=== PATIENT | female | born 1970 | race African-American/Black ===

== ENCOUNTER 2020-11-30 19:35 | Emergency (ER) | payer OTHER ==
[~2020-11-30] VITALS: Ht 160 cm; Wt 82.7 kg
--- NOTE | 2020-11-30 20:09 | PHYS DOC ---
Past History Past Medical History: Arthritis General Adult EDM: Chief Complaint: SYNCOPE HPI: HPI: "... I just had a spinal stimulator put in at ... today for my chronic back pain... I got home and was feeling dizzy.. and then I started vomiting.. .. and next thing I know .. I guess I passed out.. and did a face plant into floor.. messed up the side face and head.. Dr. Iglesias did the implant at ... " Patient is a 49 year old female dependent who presents with above hx and syncope complaints after returning home today from procedure to place a spinal stimulator. Patient has a history of chronic back pain. No history immunosuppression. Patient states she became nauseous at home and started vomiting and had a syncopal event and fell from her bed to the floor. Upon awaking after short loss of consciousness noted she had contusions to her head and left side of face. Patient denies any recent travel. No specific ill contacts. Generally healthy with exception of chronic back pain. Pt. follows with Dr. Aleksandr collazo. Dr. Iglesias neurosurgery at Review of Systems: Review of Systems: Constitutional: Denies fever or chills Eyes: Denies change in visual acuity HENT: Complains of facial pain and head injury Respiratory: Denies cough or shortness of breath Cardiovascular: Denies chest pain or edema GI: Denies abdominal pain, nausea, vomiting, bloody stools or diarrhea : Denies dysuria Musculoskeletal: Complains of back pain Integument: Denies rash Neurologic: Denies headache, focal weakness or sensory changes Endocrine: Denies polyuria or polydipsia Lymphatic: Denies swollen glands Psychiatric: Denies depression or anxiety Family History: Family History: Noncontributory to presentation Current Medications: Current Meds: See nursing for home meds Allergies: Allergies: Allergies per nursing Physical Exam: PE: Constitutional: Well developed, well nourished, moderate acute distress, non- toxic appearance. [] HENT: Normocephalic, head and facial contusion, bilateral external ears normal, oropharynx moist, no oral exudates, nose normal. Good bite. Eyes: PERRLA, EOMI, conjunctiva normal, no discharge. [] Neck: Normal range of motion, no tenderness, supple, no stridor. Mild upper neck tenderness Cardiovascular:Heart rate regular rhythm, no murmur [] Lungs & Thorax: Bilateral breath sounds clear to auscultation [] Abdomen: Bowel sounds normal, soft, no tenderness, no masses, no pulsatile masses. [] Skin: Warm, dry, no erythema, no rash. [] Back: Mild tenderness, no CVA tenderness. [] Dressing over placement of spinal stimulator-stable no leakage of spinal fluid. Site of battery pack also stable Extremities: No tenderness, no cyanosis, no clubbing, ROM intact, no edema. [] Neurologic: Alert and oriented X 3, normal motor function, normal sensory function, no focal deficits noted. DTRs +2 patella and brachial. Ambulatory without problems. No drift. Senior Network Architect equal. Right-hand dominant. Psychologic: Affect anxious, judgement normal, mood normal. [] EKG: EKG: My interpretation EKG shows sinus rhythm 63 bpm. Some bimodal P waves and left leads. But no findings of acute STEMI or contralateral changes. [] Radiology/Procedures: Radiology/Procedures: [address] [address] IMAGING REPORT Signed PATIENT: DOM PASTORACCOUNT: [id number] : 1970 LOCATION: ER AGE: 49 SEX: F EXAM STATUS: REG ER ORD. PHYSICIAN: KIRIT LAINEZ MD REASON: syncope , fall, contusons PROCEDURE: PORTABLE CHEST 1V Study: XR CHEST 1V Indication: Syncope. Fall. Comparison: None. Findings: The cardiomediastinal silhouette and anamika are within normal limits given AP technique. No confluent airspace infiltrate, layering effusion or pneumothorax. The partially assessed osseous structures are grossly intact. Spinal cord stimulator device. Impression: No acute radiographic abnormality of the chest. Electronically signed by: KEON LU MD (11/30/2020 9:53 PM) [facility] DICTATED AND SIGNED BY: KEON LU MD DATE: 11/30/202151 CC: KIRIT LAINEZ MD; JUSTINE CAPUTO MD ~MTH0 0 [][address] [address] IMAGING REPORT Signed PATIENT: DOM PASTORACCOUNT: [id number] : 1970 LOCATION: ER AGE: 49 SEX: F EXAM STATUS: REG ER ORD. PHYSICIAN: KIRIT LAINEZ MD REASON: syncope, fall facial contusion PROCEDURE: CT MAXILLOFACIAL WO CONTRAST Exam: CT head, maxillofacial and cervical spine INDICATION: Syncope TECHNIQUE: Sequential axial images through the head, face and cervical spine were obtained without the administration of IV contrast. Exposure: One or more of the following in the visualized dose reduction techniques were utilized for this examination: 1. Automated exposure control 2. Adjustment of the MA and/or KV according to patient size 3. Use of iterative of reconstructive technique Comparisons: None FINDINGS: Head: No focal parenchymal lesion or hemorrhage is identified. There is no midline shift or sulcal effacement. No acute vascular territory infarction is identified. Dias-white distinction is preserved. The ventricular system is within normal limits without compression hydrocephalus. The basal cisterns are well maintained. Face: The visualized portions of the paranasal sinuses and mastoid air cells are well- pneumatized. No acute fractures. Cervical spine: Straightening of the cervical spine which may positional. Vertebral body heights are well-maintained. Fracture to the cervical spine is not identified. No significant spondylotic change in the cervical spine. Visualized paraspinal soft tissues are unremarkable. IMPRESSION: 1. No acute intracranial abnormality. 2. No acute traumatic injury identified at the face. 3. Negative CT C-spine for acute traumatic injury. Electronically signed by: Miguel Caceres MD (11/30/2020 9:43 PM) [facility] DICTATED AND SIGNED BY: MIGUEL CACERES MD DATE: 11/30/202136 CC: KIRIT LAINEZ MD; JUSTINE CAPUTO MD ~MTH0 0 Heart Score: C/O Chest Pain: N/A HEART Score for Chest Pain: HEART Score for Chest Pain Response (Comments) Value History Slighlty/Non-Suspicious 0 ECG Normal 0 Age < 45 0 Risk Factors No Risk Factors 0 Troponin < Normal Limit 0 Total 0 Risk Factors: Risk Factors: DM, Current or recent (<one month) smoker, HTN, HLP, family history of CAD, obesity. Risk Scores: Score 0 - 3: 2.5% MACE over next 6 weeks - Discharge Home Score 4 - 6: 20.3% MACE over next 6 weeks - Admit for Clinical Observation Score 7 - 10: 72.7% MACE over next 6 weeks - Early Invasive Strategies Course & Med Decision Making: Course & Med Decision Making Pertinent Labs and Imaging studies reviewed. (See chart for details). Patient has sleep with head elevated tonight. Ice packs as needed. Push fluids. Must return for repeat evaluation if vomits more than twice. Follow-up with primary care. Follow-up with surgery clinic. Have primary review ED work-up for syncope. Take only Tylenol for pain. Return if any concerns. Impression: 1. Syncope- felt secondary post spinal stimulator placement and meds 2. Concussion [] Dragon Disclaimer: Dragon Disclaimer: This electronic medical record was generated, in whole or in part, using a voice recognition dictation system. Departure Departure: Referrals: PCP,UNKNOWN (PCP) KIRIT LAINEZ MD November 30, 2020 20:09
[2020-11-30] MEDS ORDERED: IV RINGERS SOLUTION,LACTATED 1,000 ML IV SCH (20:30)
[2020-11-30] MEDS ORDERED: ONDANSETRON PF 4 MG/2 ML VIAL. IVP ONE ×2 (20:30→20:45)
[2020-11-30] MEDS ORDERED: ONDANSETRON PF 4 MG/2 ML VIAL. ONE (20:44)
[2020-11-30 21:25] LABS: BASO % 0 % (0-3); EOS % 1 % (0-3); HEMATOCRIT 37.5 % (36.0-47.0); LYMPH # 1.3 x10^3/uL (1.0-4.8); LYMPH % 17 % (24-48); MEAN CORPUSCULAR HEMOGLOBIN 28 pg (25-35); MEAN CORPUSCULAR HGB CONC 32 g/dL (31-37); MEAN CORPUSCULAR VOLUME 87 fL (79-100); MONO # 0.5 x10^3/uL (0.0-1.1); MONO % 7 % (0-9); NEUT # 6.1 x10^3uL (1.8-7.7); NEUT % 76 % (31-73); PLATELET COUNT 258 x10^3/uL (140-400); RED BLOOD COUNT 4.29 x10^6/uL (3.50-5.40); RED CELL DISTRIBUTION WIDTH 13.6 % (11.5-14.5)
[2020-11-30 21:36] LABS: CALCIUM 8.8 mg/dL (8.5-10.1); CREATININE 0.9 mg/dL (0.6-1.0); GFR 80.5
--- NOTE | 2020-11-30 21:41 | EKG ---
[address] [address] Test Date: 2020-11-30 Test Time: 20:07:41 Pat Name: DOM PASTOR Department: Room: Gender: F Retail Manager In Training: : 1970 Requested By: KIRIT LAINEZ Order Number: [id number] Reading MD: Measurements Intervals [place] Rate: 63 P: 47 CA: 180 QRS: 9 QRSD: 98 T: 56 QT: 414 QTc: 427 Interpretive Statements SINUS RHYTHM LEFT ATRIAL ABNORMALITY ABNORMAL ECG RI6.02 No previous ECG available for comparison
--- NOTE | 2020-11-30 21:45 | RAD ---
Exam: CT head, maxillofacial and cervical spine INDICATION: Syncope TECHNIQUE: Sequential axial images through the head, face and cervical spine were obtained without th e administration of IV contrast. Exposure: One or more of the following in the visualized dose reduction techniques were utilized for this examination: 1. Automated exposure control 2. Adjustment of the MA and/or KV according to patient size 3. Use of iterative of reconstructive technique Comparisons: None FINDINGS: Head: No focal parenchymal lesion or hemorrhage is identified. There is no midline shift or sulcal effaceme nt. No acute vascular territory infarction is identified. Dias-white distinction is preserved. The ventricular system is within normal limits without compression hydrocephalus. The basal cisterns are well maintained. Face: The visualized portions of the paranasal sinuses and mastoid air cells are well-pneumatized. No acute fractures. Cervical spine: Straightening of the cervical spine which may positional. Vertebral body heights are well-maintained. Fracture to the cervical spine is not identified. No significant spondylotic change in the cervical spine. Visualized paraspinal soft tissues are unremarkable. IMPRESSION: 1. No acute intracranial abnormality. 2. No acute traumatic injury identified at the face. 3. Negative CT C-spine for acute traumatic injury. Electronically signed by: Miguel Fernando MD (11/30/2020 9:43 PM) [facility]
[2020-11-30 21:49] LABS: ALBUMIN 3.2 g/dL (3.4-5.0); DIRECT BILIRUBIN 0.1 mg/dL (0.0-0.2); TOTAL BILIRUBIN 0.5 mg/dL (0.2-1.0); TOTAL PROTEIN 7.1 g/dL (6.4-8.2)
--- NOTE | 2020-11-30 21:55 | RAD ---
Study: XR CHEST 1V Indication: Syncope. Fall. Comparison: None. Findings: The cardiomediastinal silhouette and anamika are within normal limits given AP technique. No confluent a irspace infiltrate, layering effusion or pneumothorax. The partially assessed osseous structures are grossly intact. Spinal cord stimulator device. Impression: No acute radiographic abnormality of the chest. Electronically signed by: KEON LU MD (11/30/2020 9:53 PM) [facility]
[2020-11-30 22:05] LABS: BARBITURATES NEG (NEG); BENZODIAZEPINES POS (NEG); BILIRUBIN,URINE NEG (NEG); CANNABINOIDS NEG (NEG); CLARITY,URINE CLEAR; COCAINE NEG (NEG); COLOR,URINE YELLOW; GLUCOSE,URINE NEG (NEG); METHADONE NEG (NEG); NITRITE,URINE NEG (NEG); OPIATES NEG (NEG); PHENCYCLIDINE NEG (NEG)
[2020-11-30 22:09] LABS: BACTERIA,URINE 0 /HPF (0-FEW); RBC,URINE 0 /HPF (0-2); SQUAMOUS EPITHELIAL CELL,UR OCC /LPF; WBC,URINE 0 /HPF (0-4)
[2020-11-30 22:21] LABS: AMPHETAMINE/METHAMPHETAMINE NEG (NEG)
[2020-11-30 23:14] VITALS: BP 134/92
== END 2020-11-30 23:40 | disposition home or self-care (01) ==
LOC: ER 19:35
DX: S06.0X9A Concussion with loss of consciousness of unspecified duration, initial encounter (principal); R55 Syncope and collapse; R11.2 Nausea with vomiting, unspecified; M54.2 Cervicalgia; G89.29 Other chronic pain; M19.90 Unspecified osteoarthritis, unspecified site; W06.XXXA Fall from bed, initial encounter; Y93.89 Activity, other specified; Y92.89 Other specified places as the place of occurrence of the external cause; Y99.8 Other external cause status
CPT/HCPCS: 36415; 70450; 70486; 71045; 72125; 80048; 80076; 80307; 81001; 82550; 83690; 83735; 83880; 84443; 84484; 85025; 85610; 85730; 93005; 96361; 96374; 99285; J2405; J7120

== ENCOUNTER → 2021-04-28 | Outpatient (CLI) | payer OTHER ==
--- NOTE | 2021-04-28 15:10 | RAD ---
US DPLX VENOUS EXTREMITY LOWER LT History: Reason: LLE SWELLING, NUMBESS, HX OF DVT, BLOOD THINNERS / Spl. Instructions: / History: Comparison: None. Technique: Multiple longitudinal and transverse high resolution real-time images of the venous system of left lower extremity were obtained with color and Doppler sampling. Findings: The common femoral, superficial femoral, popliteal and proximal calf veins are all patent and demonst rate normal flow and compressibility. Normal respiratory phasicity and augmentation is present. Impression: 1. No evidence of deep vein thrombosis. Electronically signed by: Sudeep Valentin DO (04/28/2021 3:07 PM) [facility]
== END ==
LOC: RAD 14:22
PROVIDERS: ATTEND Clinical Nurse Specialist Family Health
DX: M79.605 Pain in left leg (principal); M25.475 Effusion, left foot; Z86.718 Personal history of other venous thrombosis and embolism
CPT/HCPCS: 93971